=== PATIENT | female | born 1975 | race Hispanic/Latino ===

== ENCOUNTER 2023-11-21 21:33 | Emergency (ER) | payer OTHER ==
--- OUTSIDE RECORDS SUMMARY | 2023-11-21 21:36 | XMS REPORT | Continuity of Care Document ---
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 Name Role Phone ENEDINA VASQUEZ Primary Care Physician Unavailab le ENEDINA VASQUEZ Attending Clinician Unavailable VASQUEZ, ENEDINA Admitting Clinician Unavailable Payers Payer Name Policy Type Policy Number Effective Date Expirati on Date Source 2 C [id number] 2022 00:00:00 Allergies, Adverse Reactions, Alerts Allergy Name Allergy Type Status Severity Reaction(s) Onset Date Inactive Date Treating Clinician Comments Source No Known Allergie s NA Active 12-30 07:27: 09 [facility] No Known Allergie s NA Active 12-30 07:26: 58 [facility] No Known Allergie s NA Active 12-26 13:50: 41 [facility] No Known Allergie s NA Active 12-26 13:50: 27 [facility] No Known Allergie s NA Active 12-26 08:39: 21 [facility] No Known Allergie s NA Active 11-23 13:26: 15 [facility] No Known Allergie s NA Active 11-23 13:22: 42 [facility] Encounters Start Date/Time End Date/Time Encounter Type Admission Type Attending [facility] Care Facility Care Department Encounter ID Source 2022-12-26 18:50:00 2022-12-26 18:50:00 Outpatient Encounter [facility] [id number] 13:50:00 2022-12-26 13:50:00 [facility] 3 ENEDINA VASQUEZ [facility] [id number]
--- NOTE | 2023-11-21 22:12 | RAD REPORT ---
EXAM DESCRIPTION: RAD - Chest Single View - 11/21/2023 10:04 pm CLINICAL HISTORY: CHEST PAIN Chest pain. COMPARISON: No comparisons FINDINGS: Portable technique limits examination quality. Area of increased lung markings medial right lung base suspicious for developing pneumonia. The lungs are otherwise clear. The heart is normal in size. No displaced fractures. IMPRESSION: Developing pneumonia suspected in the right lung base.
[2023-11-21 22:40] LABS: Absolute Basophils 0.1 K/uL (0-0.5); Absolute Eosinophils 0.2 K/uL (0-0.5); Absolute Lymphocytes (CBC) 2.4 K/uL (0.7-4.9); Absolute Monocytes 0.6 K/uL (0.1-1.3); Absolute Neutrophil 5.2 K/uL (1.8-8.0); Eosinophils % 2.2 % (0-4.4); Hematocrit 36.7 % (36.0-45.0); Hemoglobin 12.5 g/dL (12.0-15.0); Lymphocytes % 28.8 % (15.3-44.8); MCH 30.1 pg (27.0-35.0); MCHC 34.2 g/dL (32.0-36.0); MPV 7.6 fL (7.6-11.3); Platelets 311 thou/uL (152-406); RBC Red Blood Cell Count 4.17 M/uL (3.86-4.86); Red Cell Distribution Width 13.5 % (12.1-15.2)
[2023-11-21 22:52] LABS: Protime INR 1.09
[2023-11-21 23:00] LABS: ALT/SGPT 22 U/L (13-56); AST/SGOT 13 U/L (15-37); Albumin 3.2 g/dL (3.4-5.0); Albumin/Globulin Ratio 0.9 (1.1-1.8); Alkaline Phosphatase 105 U/L (45-117); Anion Gap 8.8 mEq/L (5.0-15.0); BUN Blood Urea Nitrogen 17 mg/dL (7-18); Bicarbonate 24 mEq/L (21-32); Bilirubin Total 0.3 mg/dL (0.2-1.0); Globulin 3.7 g/dL (2.3-3.5); Glomerular Filtration Rate 82 ml/min (=/>90); Glucose Level 99 mg/dL (74-106); Magnesium 2.1 mg/dL (1.6-2.4); NT PRO-BNP 73 pg/mL (<125); Potassium 3.8 mEq/L (3.5-5.1); Protein, Total 6.9 g/dL (6.4-8.2); Sodium Level 136 mEq/L (136-145); Troponin High Sensitivity 3.1 pg/mL (<58.9)
[2023-11-21 23:05] LABS: Bilirubin Direct < 0.1 mg/dL (0-0.2); Bilirubin Indirect, Calculated ND mg/dL (0.2-0.8); SARS-CoV-2 Antigen CONTROL BLUE LINE VIS/BG OK; SARS-CoV-2 Antigen Rapid Res Negative (Negative)
--- NOTE | 2023-11-22 00:18 | ER ---
Nurse's Notes [facility] Name: Lissette Anaya Age: 48 yrs Sex: Female : 1975 Arrival Date: 11/21/2023 Time: 21:33 Bed DX4 Private MD: Diagnosis: Lobar pneumonia, unspecified organism;Acute right middle lung pneumonia, Presentation: 11/20 21:51 Chief complaint: Patient states: Cough, thick green mucus, shortness of breath, nj1 headache, fever for about 10 days, getting worse. Coronavirus screen: Vaccine status: Patient reports receiving the 2nd dose of the covid vaccine. Ebola Screen: Patient denies travel to an Ebola-affected area in the 21 days before illness onset. Initial Sepsis Screen: Does the patient meet any 2 criteria? HR > 90 bpm. No. Patient's initial sepsis screen is negative. Does the patient have a suspected source of infection? No. Patient's initial sepsis screen is negative. Risk Assessment: Do you want to hurt yourself or someone else? Patient reports no desire to harm self or others. Onset of symptoms was October 2023. 21:51 Method Of Arrival: Ambulatory [facility] 21:51 Acuity: MARIA ELENA 3 [facility] Triage Assessment: 23:00 General: Appears in no apparent distress. Behavior is calm, cooperative, appropriate pf1 for age. Respiratory: Reports shortness of breath at rest cough that is Onset: The symptoms/episode began/occurred gradually, the patient has mild shortness of breath. MEDICAL BILLING SERVICE: 11/21 01:00 LMP N/A - unknown, Not pf1 Historical: - Allergies: 11/20 21:53 No Known Allergies; nj1 - PMHx: 21:53 None; nj1 - PSHx: 21:53 Appendectomy; Operative procedure on knee; nj1 - Immunization history:: Client reports receiving the 2nd dose of the Covid vaccine. - Infectious Disease History:: Denies. - Social history:: Smoking status: Patient denies any tobacco usage or history of. - Family history:: not pertinent. Screenin:00 [facility] Fall Risk Assessment (Adult) History of falling in the last 3 months, pf1 including since admission No falls in past 3 months (0 pts) Confusion or Disorientation No (0 pts) Intoxicated or Sedated No (0 pts) Impaired Gait No (0 pts) Mobility Assist Device Used No (0 pt) Altered Elimination No (0 pt) Score/Fall Risk Level 0 - 2 = Low Risk Oriented to surroundings, Maintained a safe environment, Educated pt \T\ family on fall prevention, incl call for assistance when getting out of bed. Abuse screen: Denies threats or abuse. Nutritional screening: No deficits noted. Tuberculosis screening: No symptoms or risk factors identified. Assessment: 23:00 General: Appears in no apparent distress. uncomfortable, Behavior is calm, cooperative, pf1 appropriate for age. Pain: Denies pain. Neuro: Level of Consciousness is awake, alert, obeys commands, Oriented to person, place, time, situation, Appropriate for age. Cardiovascular: Rhythm is sinus tachycardia. Respiratory: Reports shortness of breath cough that is Airway is patent Respiratory effort is even, unlabored, Respiratory pattern is symmetrical, tachypnea Breath sounds are clear the patient has mild shortness of breath. GI: No deficits noted. No signs and/or symptoms were reported involving the gastrointestinal system. : No deficits noted. No signs and/or symptoms were reported regarding the genitourinary system. EENT: No deficits noted. No signs and/or symptoms were reported regarding the EENT system. Derm: No deficits noted. No signs and/or symptoms reported regarding the dermatologic system. Musculoskeletal: No deficits noted. No signs and/or symptoms reported regarding the musculoskeletal system. Vital Signs: 21:51 BP 124 / 77; Pulse 101; Resp 20; Temp 99.2(O); Pulse Ox 100% ; Weight 133.81 kg; Height nj1 5 ft. 9 in. ; Pain 8/10; 11/21 00:30 BP 120 / 70; Pulse 99; Resp 20; Temp 99.1; Pulse Ox 100% ; pf1 11/20 21:51 Body Mass Index 43.56 (133.81 kg, 175.26 cm) ak1 11/20 21:51 Pain Scale: Adult [facility] ED Course: 11/20 21:36 Patient arrived in ED. jj6 21:44 Will Matson MD is Attending Physician. sp4 21:52 Triage completed. nj1 21:53 Arm band placed on right wrist. nj1 22:06 XRAY Chest (1 view) In Process Unspecified. EDMS 22:33 Influenza Screen (a \T\ B) Sent. bc6 22:33 SARS RAPID Sent. bc6 22:34 Basic Metabolic Panel Sent. bc6 22:34 CBC with Diff Sent. bc6 22:34 LFT's Sent. bc6 22:34 Magnesium Sent. bc6 22:34 NT PRO-BNP Sent. bc6 22:34 PT-INR Sent. bc6 22:34 Troponin HS Sent. bc6 22:34 Initial lab(s) drawn, by me, sent to lab. Inserted saline lock: 24 gauge in left bc6 forearm, using aseptic technique. Blood collected. 23:00 Patient has correct armband on for positive identification. placed in chair. pf1 23:22 CT Chest Wo Con In Process Unspecified. EDMS 11/21 00:00 IV discontinued, intact, bleeding controlled, No redness/swelling at site. Pressure pf1 dressing applied. 00:00 No provider procedures requiring assistance completed. pf1 01:00 Provided Education on: finish abx f/u with PCP. pf1 Administered Medications: 00:50 Drug: LevOfloxacin PO 750 mg PO once Route: PO; pf1 01:00 Follow up: Response: Medication administered at discharge. pf1 Medication: 00:50 VIS not applicable for this client. pf1 Outcome: 00:17 Discharge ordered by . sp4 01:00 Discharged to home ambulatory, with family, pf1 01:00 Condition: improved 01:00 Discharge instructions given to patient, family, Instructed on discharge instructions, follow up and referral plans. Demonstrated understanding of instructions, follow-up care, medications, Prescriptions given X 3, 01:12 Patient left the ED. pf1 Signatures: Dispatcher [employer] EDKY Maryan Terry jj6 Nini Juarez, RN RN pf1 Silvana Alva 6 Will Matson MD MD sp4 Mona Dean RN RN nj1 Corrections: (The following items were deleted from the chart) 06:30 00:00 Provided Education on: finish abx f/u with PCP. pf1 pf1 06:33 00:30 BP 120 / 70; Pulse 99bpm; Resp 20bpm; Pulse Ox 100%; pf1 pf1
--- NOTE | 2023-11-22 00:18 | EDPHYS ---
Physician Documentation [facility] Name: Lissette Anaya Age: 48 yrs Sex: Female : 1975 Arrival Date: 11/21/2023 Time: 21:33 Bed DX4 Private MD: ED Physician Will Matson HPI: 11/20 21:44 This 48 yrs old Female presents to ER via Unassigned with complaints of sp4 Shortness Of Breath, Numbness Of Hand, Dizziness, Fever. 22:53 Very pleasant 48-year-old female presents with 11 days of fever, Max 101.8, cough with sp4 green sputum, headache body aches feeling unwell. Also reported pleuritic chest pains and dizziness. . DIETICIAN: 11/21 01:00 LMP N/A - unknown, Not pf1 Historical: - Allergies: 11/20 21:53 No Known Allergies; nj1 - PMHx: 21:53 None; nj1 - PSHx: 21:53 Appendectomy; Operative procedure on knee; nj1 - Immunization history:: Client reports receiving the 2nd dose of the Covid vaccine. - Infectious Disease History:: Denies. - Social history:: Smoking status: Patient denies any tobacco usage or history of. - Family history:: not pertinent. ROS: 22:53 Constitutional: Negative for fever, chills, and weight loss, sp4 22:53 Constitutional: Positive for fever, cough, green sputum, positive for headache, positive for body aches, positive for feeling unwell, positive for pleuritic chest pain, positive dizziness 22:53 All other systems are negative, Exam: 22:53 Constitutional: This is a well developed, well nourished patient who is awake, alert, sp4 and in no acute distress. Head/Face: Normocephalic, atraumatic. Eyes: Pupils equal round and reactive to light, extra-ocular motions intact. Lids and lashes normal. Conjunctiva and sclera are not injected. Cornea within normal limits. Periorbital areas with no swelling, redness, or edema. ENT: Nares patent. No nasal discharge, no septal abnormalities noted. Tympanic membranes are normal and external auditory canals are clear. Oropharynx with no redness, swelling, or masses, exudates, or evidence of obstruction, uvula midline. Mucous membranes moist. Neck: Trachea midline, no thyromegaly or masses palpated, and no cervical lymphadenopathy. Supple, full range of motion without nuchal rigidity, or vertebral point tenderness. Chest/axilla: Normal chest wall appearance and motion. Nontender with no deformity. No lesions are appreciated. Cardiovascular: Regular rate and rhythm with a normal S1 and S2. No gallops, murmurs, or rubs. Normal PMI, no JVD. No pulse deficits. Respiratory: Lungs have equal breath sounds bilaterally, clear to auscultation and percussion. No rales, rhonchi or wheezes noted. No increased work of breathing, no retractions or nasal flaring. Abdomen/GI: Soft, with normal bowel sounds. No distension or tympany. No guarding or rebound. No evidence of tenderness throughout. Back: No spinal tenderness. No costovertebral tenderness. Skin: Warm, dry with normal turgor. Normal color with no rashes, no lesions, and no evidence of cellulitis. MS/ Extremity: Pulses equal, no cyanosis. Neurovascular intact. Full, normal range of motion. Neuro: Awake and alert, GCS 15, oriented to person, place, time, and situation. Cranial nerves II-XII grossly intact. Motor strength 5/5 in all extremities. Sensory grossly intact. Psych: Awake, alert, with orientation to person, place and time. Behavior, mood, and affect are within normal limits 22:55 ECG was reviewed by the Attending Physician. EKG at 2253 normal sinus rhythm, normal sp4 EKG rate 79 Vital Signs: 21:51 BP 124 / 77; Pulse 101; Resp 20; Temp 99.2(O); Pulse Ox 100% ; Weight 133.81 kg; Height nj1 5 ft. 9 in. ; Pain /; 11/21 00:30 BP 120 / 70; Pulse 99; Resp 20; Temp 99.1; Pulse Ox 100% ; pf1 11/20 21:51 Body Mass Index 43.56 (133.81 kg, 175.26 cm) [facility] 11/20 21:51 Pain Scale: Adult [facility] MDM: 11/20 21:58 Patient medically screened. sp4 22:51 ED course: EXAM DESCRIPTION: RAD - Chest Single View - 11/21/2023 10:04 pm CLINICAL sp4 HISTORY: CHEST PAIN Chest pain. COMPARISON: No comparisons FINDINGS: Portable technique limits examination quality. Area of increased lung markings medial right lung base suspicious for developing pneumonia. The lungs are otherwise clear. The heart is normal in size. No displaced fractures. IMPRESSION: Developing pneumonia suspected in the right lung base.. 11/21 00:11 ED course: CLINICAL HISTORY: assess for pneumonia COMPARISON: None. TECHNIQUE: CT CHEST sp4 WITHOUT IV CONTRAST on 11/21/2023 10:51 PM CDT This exam was performed according to our departmental dose-optimization program, which includes automated exposure control, adjustment of the mA and/or kV according to patient size and/or use of iterative reconstruction technique. FINDINGS: The heart is normal in size. There is no pericardial effusion. Intrathoracic lymph nodes are not enlarged. There is no pleural effusion, pleural thickening or pneumothorax. Central airways are patent. There are patchy groundglass opacities within the right middle lobe. There are postoperative changes of the upper stomach. There are no acute osseous findings. No suspicious bony lesions. IMPRESSION: Right middle lobe pneumonia. . 00:14 Differential diagnosis: Anemia Anxiety Reaction asthma, Bronchitis pneumonia. Data sp4 reviewed: vital signs, nurses notes, old medical records, lab test result(s), cardiac enzymes, electrolytes, hepatic panel. Consideration of Admission/Observation Escalation of care including admission/observation considered. ED course: CT chest has revealed patchy groundglass opacification within the right middle lobe. Patient will be treated with levofloxacin for the next 7 days. Able for discharge home will also advise dextromethorphan for cough suppression and ibuprofen for body aches. . 11/20 21:44 Order name: Basic Metabolic Panel; Complete Time: 00:09 sp4 11/20 21:44 Order name: CBC with Diff; Complete Time: 22:51 sp4 11/20 21:44 Order name: LFT's; Complete Time: 00:09 4 11/20 21:44 Order name: Magnesium; Complete Time: 00:09 sp4 11/20 21:44 Order name: NT PRO-BNP; Complete Time: 00:09 sp4 11/20 21:44 Order name: PT-INR; Complete Time: 00:09 sp4 11/20 21:44 Order name: Troponin HS; Complete Time: 00:09 4 11/20 21:59 Order name: SARS RAPID; Complete Time: 00:09 sp4 11/20 21:59 Order name: Influenza Screen (a \T\ B); Complete Time: 00:09 sp4 11/20 21:44 Order name: XRAY Chest (1 view); Complete Time: 22:51 sp4 11/20 22:51 Order name: CT Chest Wo Con sp4 11/20 21:44 Order name: Cardiac monitoring; Complete Time: 01:12 sp4 11/20 21:44 Order name: EKG - Nurse/Tech; Complete Time: 22:34 sp4 11/20 21:44 Order name: IV Saline Lock; Complete Time: 22:34 sp4 11/20 21:44 Order name: Labs collected and sent; Complete Time: 22:34 sp4 11/20 21:44 Order name: O2 Per Protocol; Complete Time: 01:12 sp4 11/20 21:44 Order name: O2 Sat Monitoring; Complete Time: 01:12 sp4 EC/02 22:55 Rate is 79 beats/min. Rhythm is regular, Normal Sinus Rhythm. QRS [place] is Normal. [place] sp4 interval is normal. QRS interval is normal. QT interval is normal. No Q waves. T waves are Normal. No ST changes noted. Clinical impression: Normal ECG. Interpreted by me. Reviewed by me. Administered Medications: 11/21 00:50 Drug: LevOfloxacin PO 750 mg PO once Route: PO; pf1 01:00 Follow up: Response: Medication administered at discharge. pf1 Disposition Summary: 11/22/23 00:17 Discharge Ordered Notes: Location: Home sp4 Problem: new sp4 Symptoms: have improved sp4 Condition: Stable sp4 Diagnosis - Lobar pneumonia, unspecified organism sp4 - Acute right middle lung pneumonia, sp4 Followup: sp4 - With: Private Physician - When: 7 - 10 days - Reason: Recheck today's complaints Discharge Instructions: - Discharge Summary Sheet sp4 - Community-Acquired Pneumonia, Adult sp4 Forms: - Patient Portal Instructions sp4 Prescriptions: - dextromethorphan-guaifenesin 10-200 mg Oral capsule - take 2 capsule ORAL route every 4 hours PRN cough; 40 capsule; Refills: 0, sp4 Product Selection Permitted - Ibuprofen 800 mg Oral Tablet - take 1 tablet ORAL route every 8 hours As needed take with food; 30 tablet; sp4 Refills: 0, Product Selection Permitted - levofloxacin 750 mg Oral tablet - take 1 tablet ORAL route once daily for 7 days; 7 tablet; Refills: 0, Product sp4 Selection Permitted Signatures: Dispatcher [employer] Nini Ayala, CASSI RN pf1 Will Matson MD MD sp4 Mona Dean RN RN nj1 Corrections: (The following items were deleted from the chart) 11/20 21:45 21:45 BASIC METABOLIC PANEL+C.LAB.BRZ ordered. EDMS EDMS 21:45 21:45 CBC+H.LAB.BRZ ordered. EDMS EDMS 21:45 21:45 HEPATIC FUNCTION+C.LAB.BRZ ordered. EDMS EDMS 21:45 21:45 MAGNESIUM+C.LAB.BRZ ordered. EDMS EDMS 21:45 21:45 PROBNP+C.LAB.BRZ ordered. EDMS EDMS 21:45 21:45 PROTIME (+INR)+COAG.LAB.BRZ ordered. EDMS EDMS 21:45 21:45 Troponin High Sensitivity+C.LAB.BRZ ordered. EDMS EDMS 21:45 21:45 Chest Single View+RAD.RAD.BRZ ordered. EDMS EDMS
[2023-11-22] MEDS ORDERED: levoFLOXacin 750 MG TAB ONE (00:21)
[2023-11-22 02:15] VITALS: BP 124/77; TEMP 99.2; O2SAT 100
--- NOTE | 2023-11-22 14:06 | RAD REPORT ---
EXAM DESCRIPTION: CT CHEST WITHOUT IV CONTRAST CLINICAL HISTORY: Assess for pneumonia COMPARISON: None. TECHNIQUE: CT CHEST WITHOUT IV CONTRAST on 11/21/2023 10:51 PM CDT This exam was performed according to our departmental dose-optimization program, which includes autom ated exposure control, adjustment of the mA and/or kV according to patient size and/or use of iterati ve reconstruction technique. FINDINGS: The heart is normal in size. There is no pericardial effusion. Intrathoracic lymph nodes a re not enlarged. There is no pleural effusion, pleural thickening or pneumothorax. Central airways are patent. There a re patchy groundglass opacities within the right middle lobe. There are postoperative changes of the upper stomach. There are no acute osseous findings. No suspi cious bony lesions. IMPRESSION: Right middle lobe pneumonia. Electronically signed by: Steven Clark MD 11/21/2023 11:58 PM CDT Due to temporary technical issues with the PACS/Fluency reporting system, reports are being signed by the in house radiologist without review as a courtesy to ensure prompt reporting. The interpreting r adiologist is fully responsible for the content of the report.
--- NOTE | 2023-11-23 15:42 | EKG ---
Test Date: 2023-11-21 Test Time: 22:53:40 [place] Supervisor: JC MEASUREMENT RESULTS: Intervals: Rate: 79 NH: 168 QRSD: 70 QT: 382 QTc: 438 [place]: P: 42 NH: 168 QRS: 28 T: 37 INTERPRETIVE STATEMENTS: Normal sinus rhythm Low voltage QRS Borderline ECG No previous ECG available for comparison Electronically Signed On 11-23-23 15:39:36 CDT by Shaan Sandhu
== END 2023-11-22 01:12 | disposition home or self-care (01) ==
LOC: ER 21:33
DX: J18.1 Lobar pneumonia, unspecified organism (principal); Z11.52 Encounter for screening for COVID-19
CPT/HCPCS: 36415; 71045; 71250; 80048; 80076; 83735; 83880; 84484; 85025; 85610; 87804; 87811; 93005; 99284